=== PATIENT | female | born 1950 | race Caucasian/White ===

== ENCOUNTER 2020-08-31 13:16 | Outpatient (CLI) | payer MEDICARE ==
[2020-08-31 15:44] LABS: #Basophils 0.1 10x3/uL (0.0-0.2); #Eosinphils 0.3 10x3/uL (0.0-0.5); #Monocytes 0.7 10x3/uL (0.0-1.1); #Neutrophils 4.4 10x3/uL (1.5-8.4); %Basophils 0.6 % (0.0-2.0); %Eosinophils 3.5 % (0.0-6.0); %Lymphocytes 31.5 % (18.0-47.0); %Monocytes 8.4 % (0.0-10.0); %Neutrophils 55.7 % (40.0-75.0); Hemoglobin 15.1 g/dL (12.0-15.5); Mean Corpuscular HGB CONC 31.6 g/dL (32.0-36.0); Mean Corpuscular Hemoglobin 28.9 pg (27.0-33.0); Mean Corpuscular Volume 91.4 fl (81.6-98.3); Mean Platelet Volume 9.8 fl (7.4-10.4); Platelet Count 366 10x3/uL (150-450); Red Blood Cell (RBC) Count 5.23 10x6/uL (3.90-5.03); White Blood Cell (WBC) Count 7.8 10x3/uL (3.5-10.5)
[2020-08-31 15:57] LABS: Anion Gap 12 mmol/L (10-20); BUN (Urea Nitrogen) 8 mg/dL (9.8-20.1); Calc. Creatinine Clearance 0 mL/min (70-130); Calcium 9.4 mg/dL (7.8-10.44); Carbon Dioxide 30 mmol/L (23-31); Chloride 101 mmol/L (98-107); Glucose 84 mg/dL (80-115); Potassium 4.9 mmol/L (3.5-5.1); Sodium 138 mmol/L (136-145)
[2020-09-01 02:52] LABS: SARS-CoV-2 PCR by NAA Not Detected (NotDetected)
== END 2020-08-31 13:17 | disposition home or self-care (01) ==
LOC: LABBT 13:16
PROVIDERS: ATTEND Surgery
DX: Z01.818 Encounter for other preprocedural examination (principal); K43.2 Incisional hernia without obstruction or gangrene; Z20.822 Contact with and (suspected) exposure to COVID-19
CPT/HCPCS: 80048; 85025; 93005; U0003; U0005; 87635; 93010

== ENCOUNTER 2020-09-05 11:35 | Day surgery (SDC) | payer MEDICARE ==
[2020-09-04 09:17] VITALS: BMI 39.2
[2020-09-05] MEDS ORDERED: Lidocaine 1% w/Epinephrine 1:100K 20 ML VIAL ONE (13:40)
[2020-09-05] MEDS ORDERED: Bupivacaine 0.25% HCL 30 ML VIAL ONE (13:40)
[2020-09-05] MEDS ORDERED: Midazolam HCl 2 mg/2 ml Vial ONE (13:42)
[2020-09-05] MEDS ORDERED: Ketamine 50 MG/ML (10ML VIAL) ONE (13:42)
[2020-09-05] MEDS ORDERED: SUGAMMADEX SODIUM 200 MG/2 ML VIAL ONE (13:42)
[2020-09-05] MEDS ORDERED: Famotidine/PF 20 mg/2ml Vial ONE (13:42)
[2020-09-05] MEDS ORDERED: PHENYLEPHRINE-NS 100 MCG/ML 10 ML SYRINGE ONE (13:55)
[2020-09-05] MEDS ORDERED: PROPOFOL 200 MG/20 ML VIAL ONE (13:55)
[2020-09-05] MEDS ORDERED: ePHEDrine 50 MG/ML VIAL ONE (13:55)
[2020-09-05] MEDS ORDERED: Lidocaine 1% PF 5 ML VIAL ONE (13:55)
[2020-09-05] MEDS ORDERED: Ondansetron PF 4 MG/2 ML Vial ONE (13:55)
[2020-09-05] MEDS ORDERED: Rocuronium Bromide 10 MG/ML (10ML VIAL) ONE (13:55)
[2020-09-05] MEDS ORDERED: Metoclopramide HCl 10 MG/2 ML VIAL ONE (13:55)
[2020-09-05] MEDS ORDERED: Ketorolac Tromethamine 30 MG/ML VIAL ONE (13:55)
[2020-09-05] MEDS ORDERED: HYDROcodone/Acetaminophen 5/325 mg Tablet ONE (16:08)
== END 2020-09-05 16:38 | disposition home or self-care (01) ==
LOC: SDC 11:35
PROVIDERS: ATTEND Surgery
PROC: 0WUF4JZ Supplement Abdominal Wall with Synthetic Substitute, Percutaneous Endoscopic Approach (ICD-10-PCS; principal; 2020-09-05)
PROC: 0WUF4JZ Supplement Abdominal Wall with Synthetic Substitute, Percutaneous Endoscopic Approach (ICD-10-PCS; 2020-09-05)
DX: K43.2 Incisional hernia without obstruction or gangrene (principal); K42.9 Umbilical hernia without obstruction or gangrene; Z79.02 Long term (current) use of antithrombotics/antiplatelets; Z79.82 Long term (current) use of aspirin; Z79.899 Other long term (current) drug therapy; Z88.1 Allergy status to other antibiotic agents; Z91.048 Other nonmedicinal substance allergy status
CPT/HCPCS: 49652; 49654; C1781; J0690; J1885; J2250; J2405; J2704; J2765; J3490; J7620; S0020; S0028

== ENCOUNTER 2021-05-15 13:38 | Emergency (ER) | payer MEDICARE ==
[2021-05-15 15:59] LABS: #Basophils 0.1 thou/uL (0.0-0.2); #Eosinphils 0.1 thou/uL (0.0-0.7); #Lymphocytes 2.2 thou/uL (1.20-3.40); #Monocytes 0.8 thou/uL (0.11-0.59); #Neutrophils 5.7 thou/uL (1.40-6.50); %Basophils 0.8 % (0.0-1.0); %Eosinophils 1.5 % (0.0-10.0); %Lymphocytes 24.9 % (21.0-51.0); %Monocytes 8.9 % (0.0-10.0); Mean Corpuscular HGB CONC 32.7 g/dL (32.0-36.0); Mean Corpuscular Hemoglobin 28.8 pg (27.0-31.0); Mean Corpuscular Volume 87.9 fL (78.0-98.0); Mean Platelet Volume 7.3 fL (7.4-10.4); Platelet Count 280 thou/uL (130-400); RBC Distribution Width 15.1 % (11.5-14.5); Red Blood Cell (RBC) Count 5.55 mill/uL (4.20-5.40); White Blood Cell (WBC) Count 8.9 thou/uL (4.8-10.8)
[2021-05-15 16:26] LABS: ALT (SGPT) 18 U/L (8-55); AST (SGOT) 19 U/L (5-34); Albumin 3.8 g/dL (3.4-4.8); Alkaline Phosphatase 86 U/L (40-110); Anion Gap 11 mmol/L (10-20); BUN (Urea Nitrogen) 8 mg/dL (9.8-20.1); Bilirubin, Total 0.4 mg/dL (0.2-1.2); Calc. Creatinine Clearance 0 mL/min (70-130); Calcium 9.7 mg/dL (7.8-10.44); Carbon Dioxide 32 mmol/L (23-31); Chloride 104 mmol/L (98-107); Globulin 2.9 g/dL (2.4-3.5); Glucose 108 mg/dL (80-115); Protein, Total 6.7 g/dL (5.8-8.1); Sodium 142 mmol/L (136-145)
[2021-05-15 18:35] LABS: Bilirubin Negative (Negative); Blood, Urine Negative (Negative); Clarity Clear (Clear); Glucose, Urine (Dipstick) Normal (Negative); Ketone, Urine Negative (Negative); Leukocyte Negative Leu/uL (Negative); Nitrite Negative (Negative); Protein, Urine (Dipstick) Negative (Neg-Trace); Specific Gravity, Urine 1.015 (1.002-1.036); pH, Urine 6.5 (5.0-9.0)
== END 2021-05-15 21:10 | disposition home or self-care (01) ==
LOC: ERS 13:38
DX: R53.1 Weakness (principal); J44.9 Chronic obstructive pulmonary disease, unspecified; E78.5 Hyperlipidemia, unspecified; F17.210 Nicotine dependence, cigarettes, uncomplicated; Z79.02 Long term (current) use of antithrombotics/antiplatelets; Z79.899 Other long term (current) drug therapy
CPT/HCPCS: 36415; 51701; 74176; 80053; 81003; 85025

== ENCOUNTER 2021-06-28 14:03 | Inpatient (IN) | payer MEDICARE ==
[2021-06-28 14:43] LABS: #Basophils 0.1 thou/uL (0.0-0.2); #Eosinphils 0.1 thou/uL (0.0-0.7); #Lymphocytes 1.7 thou/uL (1.20-3.40); #Monocytes 0.7 thou/uL (0.11-0.59); #Neutrophils 6.8 thou/uL (1.40-6.50); %Basophils 0.6 % (0.0-1.0); %Eosinophils 0.7 % (0.0-10.0); %Lymphocytes 17.9 % (21.0-51.0); %Monocytes 7.6 % (0.0-10.0); %Neutrophils 73.2 % (42.0-75.0); Mean Corpuscular HGB CONC 31.6 g/dL (32.0-36.0); Mean Corpuscular Hemoglobin 27.7 pg (27.0-31.0); Mean Corpuscular Volume 87.7 fL (78.0-98.0); Mean Platelet Volume 6.4 fL (7.4-10.4); Platelet Count 420 thou/uL (130-400); RBC Distribution Width 15.3 % (11.5-14.5); Red Blood Cell (RBC) Count 3.96 mill/uL (4.20-5.40); White Blood Cell (WBC) Count 9.3 thou/uL (4.8-10.8)
[2021-06-28 14:55] LABS: Prothrombin Time 13.1 sec (12.0-14.7)
[2021-06-28 14:56] LABS: PTT 32.4 sec (22.9-36.1)
[2021-06-28 14:58] LABS: D-Dimer Test 1.46 *mcg/mL (0.27-0.43)
[2021-06-28 15:03] LABS: ALT (SGPT) 18 U/L (8-55); AST (SGOT) 29 U/L (5-34); Albumin 3.2 g/dL (3.4-4.8); Alkaline Phosphatase 67 U/L (40-110); Anion Gap 15 mmol/L (10-20); BUN (Urea Nitrogen) 12 mg/dL (9.8-20.1); Bilirubin, Total 0.4 mg/dL (0.2-1.2); CRP (Inflammatory) 6.17 mg/dL (= or < 0.5); Calc. Creatinine Clearance 0 mL/min (70-130); Calcium 9.2 mg/dL (7.8-10.44); Carbon Dioxide 27 mmol/L (23-31); Chloride 99 mmol/L (98-107); Globulin 3.4 g/dL (2.4-3.5); Glucose 143 mg/dL (80-115); Magnesium 2.2 mg/dL (1.6-2.6); Potassium 3.3 mmol/L (3.5-5.1); Protein, Total 6.6 g/dL (5.8-8.1); Sodium 138 mmol/L (136-145)
[2021-06-28 15:26] LABS: Bilirubin Negative (Negative); Blood, Urine Large (Negative); Glucose, Urine (Dipstick) Negative (Negative); Ketone, Urine Negative (Negative); Leukocyte Large (Negative); Nitrite Positive (Negative); Protein, Urine (Dipstick) 30 mg/dL (Neg-Trace); Specific Gravity, Urine 1.015 (1.005-1.030); Urobilinogen 0.2 mg/dL (Less than 2); pH, Urine 6.5 (5.0-9.0)
[2021-06-28 15:31] LABS: Clarity Clear (Clear)
[2021-06-28 15:34] LABS: Bacteria/HPF 3+ HPF (None Seen)
[2021-06-28] MEDS ORDERED: cefTRIAXone\\ROCEPHIN 2 GM VIAL ONE (16:36)
[2021-06-28] MEDS ORDERED: Vancomycin 1 GM/200 ML BAG ONE (16:36)
[2021-06-28] MEDS ORDERED: Acetaminophen 325 MG TAB PO PRN (17:07)
[2021-06-28] MEDS ORDERED: Calcium Carbonate 500 MG ChewTAB PO PRN (17:07)
[2021-06-28] MEDS ORDERED: Senokot S 8.6-50 MG TAB PO PRN (17:07)
[2021-06-28] MEDS ORDERED: Ondansetron PF 4 MG/2 ML Vial IVP PRN (17:07)
[2021-06-28 19:35] LABS: SARS-CoV-2 PCR by NAA Not Detected (NotDetected)
[2021-06-28] MEDS ORDERED: Famotidine 20 MG TAB ONE (22:17)
[2021-06-28] MEDS ORDERED: CEFAZOLIN 1 GM VIAL ONE (22:17)
[2021-06-28] MEDS ORDERED: Cefepime 1 GM VIAL ONE (22:19)
[2021-06-28] MEDS: Cefepime 1 GM in Sodium Chloride 0.9% 100 ML IVPB SCH (22:26)
[2021-06-28] MEDS: guaiFENesin ER 600 MG TAB PO SCH (22:27)
[2021-06-28] MEDS: Famotidine 20 MG TAB PO SCH (22:27)
[2021-06-28 23:59] VITALS: BMI 37.5
[2021-06-29 04:17] LABS: ALT (SGPT) 14 U/L (8-55); AST (SGOT) 20 U/L (5-34); Albumin 2.8 g/dL (3.4-4.8); Alkaline Phosphatase 62 U/L (40-110); Anion Gap 12 mmol/L (10-20); BUN (Urea Nitrogen) 10 mg/dL (9.8-20.1); Bilirubin, Total 0.3 mg/dL (0.2-1.2); Calc. Creatinine Clearance 83 mL/min (70-130); Calcium 8.7 mg/dL (7.8-10.44); Carbon Dioxide 27 mmol/L (23-31); Chloride 103 mmol/L (98-107); Globulin 2.9 g/dL (2.4-3.5); Glucose 91 mg/dL (80-115); Protein, Total 5.7 g/dL (5.8-8.1); Sodium 139 mmol/L (136-145)
[2021-06-29 04:21] LABS: Band 6 % (5-11); Hemoglobin 9.8 g/dL (12.0-16.0); Hypochromia SLIGHT = 6-15 cells (100X) (0-5/hpf); Lymphocytes 17 % (21-51); MDiff Complete? YES; Mean Corpuscular HGB CONC 30.7 g/dL (32.0-36.0); Mean Corpuscular Hemoglobin 27.2 pg (27.0-31.0); Mean Corpuscular Volume 88.8 fL (78.0-98.0); Mean Platelet Volume 6.1 fL (7.4-10.4); Monocytes 6 % (0-10); Neutrophil 71 % (42-75); Platelet Count 396 thou/uL (130-400); Platelet Morphology Comment Appears Adequate; RBC Distribution Width 15.1 % (11.5-14.5)
[2021-06-29] MEDS ORDERED: Potassium Chloride 20 MEQ TAB PO SCH (08:30)
[2021-06-29] MEDS: Famotidine 20 MG TAB PO SCH ×2 (09:39→20:01)
[2021-06-29] MEDS: Enoxaparin Sodium 40 MG/0.4 ML SYRINGE SC SCH (09:40)
[2021-06-29] MEDS: guaiFENesin ER 600 MG TAB PO SCH ×2 (09:40→20:01)
[2021-06-29] MEDS: Cefepime 1 GM in Sodium Chloride 0.9% 100 ML IVPB SCH ×2 (09:42→20:01)
[2021-06-29] MEDS: HYDROcodone/Acetaminophen 5/325 mg Tablet PO PRN (20:01)
[2021-06-30 08:08] LABS: #Eosinphils 0.1 thou/uL (0.0-0.7); #Lymphocytes 1.3 thou/uL (1.20-3.40); #Monocytes 0.7 thou/uL (0.11-0.59); #Neutrophils 5.3 thou/uL (1.40-6.50); %Basophils 0.6 % (0.0-1.0); %Monocytes 9.6 % (0.0-10.0); %Neutrophils 70.9 % (42.0-75.0); Mean Corpuscular HGB CONC 33.2 g/dL (32.0-36.0); Mean Corpuscular Hemoglobin 29.2 pg (27.0-31.0); Mean Corpuscular Volume 87.9 fL (78.0-98.0); Mean Platelet Volume 6.1 fL (7.4-10.4); Platelet Count 382 thou/uL (130-400); RBC Distribution Width 14.9 % (11.5-14.5); Red Blood Cell (RBC) Count 3.41 mill/uL (4.20-5.40); White Blood Cell (WBC) Count 7.4 thou/uL (4.8-10.8)
[2021-06-30 08:26] LABS: Anion Gap 14 mmol/L (10-20); BUN (Urea Nitrogen) 9 mg/dL (9.8-20.1); Calc. Creatinine Clearance 92 mL/min (70-130); Calcium 9.2 mg/dL (7.8-10.44); Carbon Dioxide 27 mmol/L (23-31); Chloride 103 mmol/L (98-107); Glucose 82 mg/dL (80-115); Sodium 141 mmol/L (136-145)
[2021-06-30] MEDS: Escitalopram Oxalate 20 mg Tablet PO SCH (08:44)
[2021-06-30] MEDS: Enoxaparin Sodium 40 MG/0.4 ML SYRINGE SC SCH (08:44)
[2021-06-30] MEDS: guaiFENesin ER 600 MG TAB PO SCH ×2 (08:44→19:54)
[2021-06-30] MEDS: Famotidine 20 MG TAB PO SCH ×2 (08:44→19:54)
[2021-06-30] MEDS: Cefepime 1 GM in Sodium Chloride 0.9% 100 ML IVPB SCH (08:44)
[2021-06-30] MEDS: Aspirin 81 mg Enteric Coated Tablet PO SCH (08:44)
[2021-06-30] MEDS: Clopidogrel Bisulfate 75 MG TAB PO SCH (08:44)
[2021-06-30] MEDS ORDERED: Bempedoic Acid [Nexletol] 180 MG Tablet PO SCH (09:00)
[2021-06-30] MEDS ORDERED: Potassium Chloride 20 MEQ TAB PO SCH (10:00)
[2021-06-30] MEDS: Potassium Chloride 20 MEQ TAB PO SCH (16:51)
[2021-06-30] MEDS: Cefdinir 300 MG CAP PO SCH (19:54)
[2021-06-30] MEDS: HYDROcodone/Acetaminophen 5/325 mg Tablet PO PRN (19:54)
[2021-07-01] MEDS: Nicotine 21 MG PATCH TOP SCH (09:25)
[2021-07-01] MEDS: Cefdinir 300 MG CAP PO SCH ×2 (09:25→20:08)
[2021-07-01] MEDS: Famotidine 20 MG TAB PO SCH ×2 (09:25→20:08)
[2021-07-01] MEDS: Clopidogrel Bisulfate 75 MG TAB PO SCH (09:25)
[2021-07-01] MEDS: Aspirin 81 mg Enteric Coated Tablet PO SCH (09:25)
[2021-07-01] MEDS: Enoxaparin Sodium 40 MG/0.4 ML SYRINGE SC SCH (09:25)
[2021-07-01] MEDS: Potassium Chloride 20 MEQ TAB PO SCH ×2 (09:25→17:14)
[2021-07-01] MEDS: guaiFENesin ER 600 MG TAB PO SCH ×2 (09:25→20:09)
[2021-07-01] MEDS: Escitalopram Oxalate 20 mg Tablet PO SCH (09:25)
[2021-07-01] MEDS ORDERED: Sodium Chloride 3% (15 ML) NEB NEB SCH (10:15)
[2021-07-01] MEDS: Sodium Chloride 3% (15 ML) NEB NEB SCH ×2 (15:15→23:08)
[2021-07-01] MEDS: HYDROcodone/Acetaminophen 5/325 mg Tablet PO PRN (20:08)
[2021-07-02] MEDS: Sodium Chloride 3% (15 ML) NEB NEB SCH ×3 (09:23→23:23)
[2021-07-02] MEDS: Nicotine 21 MG PATCH TOP SCH (09:25)
[2021-07-02] MEDS: Escitalopram Oxalate 20 mg Tablet PO SCH (09:26)
[2021-07-02] MEDS: Potassium Chloride 20 MEQ TAB PO SCH ×3 (09:26→16:11)
[2021-07-02] MEDS: Famotidine 20 MG TAB PO SCH ×2 (09:26→20:15)
[2021-07-02] MEDS: Cefdinir 300 MG CAP PO SCH ×2 (09:26→20:16)
[2021-07-02] MEDS: Aspirin 81 mg Enteric Coated Tablet PO SCH (09:26)
[2021-07-02] MEDS: guaiFENesin ER 600 MG TAB PO SCH ×2 (09:26→20:16)
[2021-07-02] MEDS: Clopidogrel Bisulfate 75 MG TAB PO SCH (09:26)
[2021-07-02] MEDS: Enoxaparin Sodium 40 MG/0.4 ML SYRINGE SC SCH (09:27)
[2021-07-03] MEDS: Sodium Chloride 3% (15 ML) NEB NEB SCH ×3 (07:12→23:00)
[2021-07-03] MEDS: guaiFENesin ER 600 MG TAB PO SCH ×2 (08:46→20:55)
[2021-07-03] MEDS: Aspirin 81 mg Enteric Coated Tablet PO SCH (08:46)
[2021-07-03] MEDS: Potassium Chloride 20 MEQ TAB PO SCH (08:46)
[2021-07-03] MEDS: Enoxaparin Sodium 40 MG/0.4 ML SYRINGE SC SCH (08:47)
[2021-07-03] MEDS: Famotidine 20 MG TAB PO SCH ×2 (08:47→20:55)
[2021-07-03] MEDS: Cefdinir 300 MG CAP PO SCH ×2 (08:47→20:55)
[2021-07-03] MEDS: Clopidogrel Bisulfate 75 MG TAB PO SCH (08:47)
[2021-07-03] MEDS: Nicotine 21 MG PATCH TOP SCH (08:48)
[2021-07-03] MEDS: Escitalopram Oxalate 20 mg Tablet PO SCH (08:48)
[2021-07-04] MEDS: Sodium Chloride 3% (15 ML) NEB NEB SCH ×3 (07:43→23:07)
[2021-07-04] MEDS: Clopidogrel Bisulfate 75 MG TAB PO SCH (08:52)
[2021-07-04] MEDS: Aspirin 81 mg Enteric Coated Tablet PO SCH (08:52)
[2021-07-04] MEDS: Nicotine 21 MG PATCH TOP SCH (08:52)
[2021-07-04] MEDS: Cefdinir 300 MG CAP PO SCH ×2 (08:52→21:14)
[2021-07-04] MEDS: Famotidine 20 MG TAB PO SCH ×2 (08:52→21:14)
[2021-07-04] MEDS: Enoxaparin Sodium 40 MG/0.4 ML SYRINGE SC SCH (08:52)
[2021-07-04] MEDS: Escitalopram Oxalate 20 mg Tablet PO SCH (08:52)
[2021-07-04] MEDS: guaiFENesin ER 600 MG TAB PO SCH ×2 (08:53→21:14)
[2021-07-05] MEDS: Sodium Chloride 3% (15 ML) NEB NEB SCH ×3 (07:29→23:32)
[2021-07-05] MEDS: Nicotine 21 MG PATCH TOP SCH (09:31)
[2021-07-05] MEDS: Famotidine 20 MG TAB PO SCH ×2 (09:32→21:29)
[2021-07-05] MEDS: Clopidogrel Bisulfate 75 MG TAB PO SCH (09:32)
[2021-07-05] MEDS: Escitalopram Oxalate 20 mg Tablet PO SCH (09:32)
[2021-07-05] MEDS: Cefdinir 300 MG CAP PO SCH ×2 (09:32→21:28)
[2021-07-05] MEDS: guaiFENesin ER 600 MG TAB PO SCH ×2 (09:32→21:29)
[2021-07-05] MEDS: Enoxaparin Sodium 40 MG/0.4 ML SYRINGE SC SCH (09:32)
[2021-07-05] MEDS: Aspirin 81 mg Enteric Coated Tablet PO SCH (09:32)
[2021-07-05 15:28] LABS: SARS-CoV-2 PCR by NAA Not Detected (NotDetected)
[2021-07-05] MEDS: HYDROcodone/Acetaminophen 5/325 mg Tablet PO PRN (21:40)
[2021-07-06 07:19] LABS: Anion Gap 11 mmol/L (10-20); BUN (Urea Nitrogen) 19 mg/dL (9.8-20.1); Calc. Creatinine Clearance 88 mL/min (70-130); Calcium 9.2 mg/dL (7.8-10.44); Carbon Dioxide 30 mmol/L (23-31); Chloride 102 mmol/L (98-107); Glucose 95 mg/dL (80-115); Potassium 3.3 mmol/L (3.5-5.1); Sodium 140 mmol/L (136-145)
[2021-07-06] MEDS: Sodium Chloride 3% (15 ML) NEB NEB SCH ×2 (07:42→14:35)
[2021-07-06] MEDS ORDERED: Potassium Chloride 20 MEQ TAB PO SCH (08:00)
[2021-07-06] MEDS: Cefdinir 300 MG CAP PO SCH ×2 (08:35→20:26)
[2021-07-06] MEDS: guaiFENesin ER 600 MG TAB PO SCH ×2 (08:35→20:26)
[2021-07-06] MEDS: Famotidine 20 MG TAB PO SCH ×2 (08:35→20:27)
[2021-07-06] MEDS: Clopidogrel Bisulfate 75 MG TAB PO SCH (08:35)
[2021-07-06] MEDS: Escitalopram Oxalate 20 mg Tablet PO SCH (08:35)
[2021-07-06] MEDS: Aspirin 81 mg Enteric Coated Tablet PO SCH (08:35)
[2021-07-06] MEDS: Enoxaparin Sodium 40 MG/0.4 ML SYRINGE SC SCH (08:36)
[2021-07-06] MEDS: Nicotine 21 MG PATCH TOP SCH (08:36)
[2021-07-06] MEDS: HYDROcodone/Acetaminophen 5/325 mg Tablet PO PRN (11:54)
[2021-07-06] MEDS ORDERED: Polyethylene Glycol 3350 17 GM Packet PO PRN (17:07)
[2021-07-06] MEDS ORDERED: Potassium Citrate 1100-334mg/5ml Oral Solution PO SCH (17:15)
[2021-07-07] MEDS: Sodium Chloride 3% (15 ML) NEB NEB SCH ×3 (01:31→14:40)
[2021-07-07] MEDS: Clopidogrel Bisulfate 75 MG TAB PO SCH (08:34)
[2021-07-07] MEDS: Enoxaparin Sodium 40 MG/0.4 ML SYRINGE SC SCH (08:34)
[2021-07-07] MEDS: Aspirin 81 mg Enteric Coated Tablet PO SCH (08:34)
[2021-07-07] MEDS: Cefdinir 300 MG CAP PO SCH ×2 (08:34→21:04)
[2021-07-07] MEDS: HYDROcodone/Acetaminophen 5/325 mg Tablet PO PRN ×3 (08:34→21:04)
[2021-07-07] MEDS: Famotidine 20 MG TAB PO SCH ×2 (08:34→21:04)
[2021-07-07] MEDS: guaiFENesin ER 600 MG TAB PO SCH ×2 (08:34→21:04)
[2021-07-07] MEDS: Nicotine 21 MG PATCH TOP SCH (08:34)
[2021-07-07] MEDS: Escitalopram Oxalate 20 mg Tablet PO SCH (08:34)
[2021-07-07] MEDS: AFRIN NASAL MIST 15 ML BOT NS PRN (22:23)
[2021-07-08] MEDS: Sodium Chloride 3% (15 ML) NEB NEB SCH ×3 (00:35→14:48)
[2021-07-08] MEDS: HYDROcodone/Acetaminophen 5/325 mg Tablet PO PRN (05:45)
[2021-07-08] MEDS: Enoxaparin Sodium 40 MG/0.4 ML SYRINGE SC SCH (08:13)
[2021-07-08] MEDS: Nicotine 21 MG PATCH TOP SCH (08:13)
[2021-07-08] MEDS: Escitalopram Oxalate 20 mg Tablet PO SCH (08:14)
[2021-07-08] MEDS: Aspirin 81 mg Enteric Coated Tablet PO SCH (08:14)
[2021-07-08] MEDS: Cefdinir 300 MG CAP PO SCH (08:14)
[2021-07-08] MEDS: guaiFENesin ER 600 MG TAB PO SCH (08:14)
[2021-07-08] MEDS: Famotidine 20 MG TAB PO SCH (08:14)
[2021-07-08] MEDS: Clopidogrel Bisulfate 75 MG TAB PO SCH (08:14)
[2021-07-08 09:27] VITALS: BP 107/71; TEMP 98.8
[2021-07-08] MEDS: AFRIN NASAL MIST 15 ML BOT NS PRN (10:31)
== END 2021-07-08 18:06 | DRG 205 ==
LOC: ERS 14:03 → ERHOLD 16:35 → CCU 22:48 → T4-A 06-29 10:45
PROVIDERS: ADMIT Family Medicine; ATTEND Internal Medicine
PROC: 0BC38ZZ Extirpation of Matter from Right Main Bronchus, Via Natural or Artificial Opening Endoscopic (ICD-10-PCS; principal; 2021-06-28)
PROC: 0BC48ZZ Extirpation of Matter from Right Upper Lobe Bronchus, Via Natural or Artificial Opening Endoscopic (ICD-10-PCS; 2021-06-28)
PROC: 0BC18ZZ Extirpation of Matter from Trachea, Via Natural or Artificial Opening Endoscopic (ICD-10-PCS; 2021-06-28)
DX: T17.590A Other foreign object in bronchus causing asphyxiation, initial encounter (principal); J96.01 Acute respiratory failure with hypoxia; G37.3 Acute transverse myelitis in demyelinating disease of central nervous system; J98.11 Atelectasis; Z20.822 Contact with and (suspected) exposure to COVID-19; I25.10 Atherosclerotic heart disease of native coronary artery without angina pectoris; N18.2 Chronic kidney disease, stage 2 (mild); I73.9 Peripheral vascular disease, unspecified; J43.2 Centrilobular emphysema; R53.81 Other malaise; F17.210 Nicotine dependence, cigarettes, uncomplicated; E78.5 Hyperlipidemia, unspecified; F32.A Depression, unspecified; F41.9 Anxiety disorder, unspecified; E87.6 Hypokalemia; Z91.048 Other nonmedicinal substance allergy status; Z79.82 Long term (current) use of aspirin; Z79.02 Long term (current) use of antithrombotics/antiplatelets; Z79.899 Other long term (current) drug therapy; Z88.8 Allergy status to other drugs, medicaments and biological substances; Z95.5 Presence of coronary angioplasty implant and graft
CPT/HCPCS: 31500; 36415; 71045; 80048; 80053; 81003; 81015; 83735; 83880; 84484; 85007; 85025; 85027; 85379; 85610; 85730; 86140; 87086; 93005; 94640; 94660; 94667; 94668; 96365; 96366; J0690; J0692; J0696; J1650; J3370; J3490; J7620; U0003; U0005